=== PATIENT | female | born 1990 | race Caucasian/White ===

== ENCOUNTER 2019-05-25 21:04 | Inpatient (IN) ==
--- NOTE | 2019-05-25 21:25 | EKG Report ---
Test Performed on : 05/25/2019 9:16:01 PM Test Reason : overdose Blood Pressure : / mmHG Vent. Rate : 106 BPM Atrial Rate : 106 BPM P-R Int : 178 ms QRS Dur : 086 ms QT Int : 366 ms P-R-T Axes : 017 067 029 degrees QTc Int : 486 ms Sinus tachycardia. Otherwise normal ECG No previous ECGs available Unconfirmed Result
[2019-05-25 21:34] LABS: BASO# 0.03 X1000 (0.0-0.2); BASO% 0.3 % (0.0-0.8); EOS# 0.17 X1000 (0.0-0.7); EOS% 1.7 % (0.0-10.0); HEMATOCRIT 40.6 % (37.0-47.0); HEMOGLOBIN 14.2 g/dL (12.0-16.0); IMM GRAN# 0.02 X1000 (0.0-0.04); IMM GRAN% 0.2 % (0.0-0.5); LYMPH# 2.19 X1000 (1.2-3.4); LYMPH% 22.3 % (20.5-51.1); MCH 30.8 PG (27-31); MCV 88.1 FL (81-99); MONO# 1.03 X1000 (0.11-0.59); MONO% 10.5 % (1.7-9.3); MPV 10.4 FL (7.4-10.4); PLT 253 X1000 (130-400); RBC 4.61 XMIL (4.2-5.4); RDW 12.2 % (11.5-14.5); WBC 9.84 X1000 (4.8-10.8)
[2019-05-25 21:35] LABS: BILIRUBIN URINE NEGATIVE (NEGATIVE); BLOOD URINE 3+ (NEGATIVE); CLARITY CLEAR (CLEAR); COLOR YELLOW; GLUCOSE URINE NEGATIVE (NEGATIVE); KETONE URINE NEGATIVE (NEGATIVE); LEUKOCYTES URINE NEGATIVE (NEGATIVE); NITRITE URINE NEGATIVE (NEGATIVE); PROTEIN URINE NEGATIVE (NEGATIVE); UROBILINOGEN URINE NORMAL
[2019-05-25 21:47] LABS: URINE BACTERIA NEGATIVE /HFP; URINE CAST NONE SEEN /LPF; URINE CRYSTAL NONE SEEN /HPF; URINE EPITHELIAL CELLS <10 /HPF (<10); URINE RBC <10 /HPF (<10); URINE SOURCE CATH; URINE WBC <10 /HPF (<10); URINE YEAST NONE SEEN /HPF
[2019-05-25 21:50] LABS: UR AMPHETAMINES QUAL NONE DETECTED (NONE DETECT); UR BARBITUATES QUAL NONE DETECTED (NONE DETECT); UR BENZODIAZEPIN QUAL NONE DETECTED (NONE DETECT); UR CANNABINOIDS QUAL NONE DETECTED (NONE DETECT); UR COCAINE QUAL NONE DETECTED (NONE DETECT); UR METHADONE QUAL NONE DETECTED (NONE DETECT); UR METHAMPHETAMINE QUAL NONE DETECTED (NONE DETECT); UR OPIATES QUAL NONE DETECTED (NONE DETECT); UR OXYCODONE QUAL NONE DETECTED (NONE DETECT); UR PCP QUAL NONE DETECTED (NONE DETECT); UR PROPOXYPHENE QUAL NONE DETECTED (NONE DETECT); UR TCA QUAL NONE DETECTED (NONE DETECT)
[2019-05-25 21:52] LABS: AGAP 12; ALBUMIN 4.2 g/dL (3.5-5.0); ALKALINE PHOSPHATASE 73 U/L (32-104); BUN 6 mg/dL (8-22); CALCIUM 8.7 mg/dL (8.8-10.2); CHLORIDE 106 mmol/L (98-107); COSMO 277; CREATININE 0.6 mg/dL (0.5-0.9); ESTIMATED GFR > 60; GLUCOSE 70 mg/dL (70-104); GOT 19 U/L (10-30); GPT 14 U/L (10-36); POTASSIUM 3.5 mmol/L (3.5-5.1); SODIUM 141 mmol/L (136-145); TCO2 23 mmol/L (25-35); TOTAL PROTEIN 6.9 g/dL (6.3-8.3)
--- NOTE | 2019-05-25 22:06 | Diag Imaging Result Doc PS360 ---
EXAM: CHEST-1 VIEW - 05/25/2019 HISTORY: SI TECHNIQUE: Portable chest COMPARISON: None. FINDINGS: Allowing for the AP projection, heart size appears within normal limits. Inspiration is mildly shallow. The lungs appear essentially clear. There is no pleural effusion or pneumothorax identified. IMPRESSION: Mildly shallow inspiration. No other evidence of acute disease. Electronically signed by Chavez Sanford 05/25/2019 10:04 PM
[2019-05-25 22:17] LABS: ACETAMINOPHEN < 1.2 ug/mL (10-30); MAGNESIUM 1.8 mg/dL (1.5-2.7); SALICYLATES < 3.00 mg/dL (3-10)
[2019-05-25] MEDS ORDERED: ATIVAN IV ONE (22:17)
[2019-05-25 22:36] LABS: FREE T4 1.45 ng/dL (0.93-1.70)
[2019-05-25] MEDS ORDERED: STERILE WATER INJ. INJ ONE (22:36)
[2019-05-25] MEDS ORDERED: GEODON IM ONE (22:36)
--- NOTE | 2019-05-25 23:01 | PROVIDER DOCUMENTATION ---
This chart was entered by Joan Wesley Scribe, acting as scribe for Rosamaria Hendrickson MD. HPI-Psychological Disorder - General Chief Complaint: Suicide Attempt Stated Complaint: Overdose Time Seen by Provider: 05/25/19 21:11 Source: patient Allergies/Adverse Reactions: Patient Allergies Allergy/AdvReac Type Severity Reaction Status Date / Time No Known Allergies Allergy Verified 05/25/19 21:12 Home Medications: Home Medication List Medication Instructions Recorded Confirmed Last Taken Type Paroxetine [Paxil] 20 mg PO DAILY 02/08/19 05/26/19 Unknown History Lorazepam 1 mg PO BID 05/26/19 05/26/19 Unknown History Trazodone HCl 50 mg PO HS 05/26/19 05/26/19 Unknown History - History of Present Illness-Psych Nature of Presenting Problem: pt is a 28 yr old female presenting via EMS post suicide attempt, pt reports she took 32 50mg Benadryl and tried to cut her left wrist in attempt to kill herself. pt also admits low abdominal pain and nausea. pt does not say why she wants to harm self. Onset/Duration: reports: this evening (1929) Timing: reports: still present Psychiatric Complaints: reports: depressed, suicidal ideation. denies: homicidal thoughts Substance Use: reports: denies Patient arrived by:: EMS called by spouse/family (brother) - Suicidal Ideation How did the ingestion/other suicidal act come to attention?: pt called brother, brother called 911 Suicide Risk Assessment: depressed, organized plan, frightened friends-family Suicidal Attempt Method: reports: Overdose, Stabbing/Cutting Review of Systems - Adult - REVIEW OF SYSTEMS - ADULT Constitutional: reports: no symptoms reported Eyes: reports: no symptoms reported Ears, Nose, Mouth & Throat: reports: no symptoms reported Cardiovascular: denies: chest pain, palpitations, syncope Respiratory: denies: shortness of breath Gastrointestinal: reports: abdominal pain, nausea. denies: diarrhea, vomiting Genitourinary: reports: no symptoms reported Musculoskeletal: denies: back pain, neck pain Integumentary: reports: no symptoms reported Neurological: denies: dizziness/vertigo, headache/migraines Psychiatric: reports: depression, suicidal thoughts Endocrine: reports: no symptoms reported Hematologic/Lymphatic: reports: no symptoms reported Allergic/Immunologic: reports: no symptoms reported All Other Systems: Reviewed and Negative Past History - Adult - PAST MEDICAL HISTORY-ADULT Review of Records: reports: Old Records Reviewed, Nursing Assessment Review, Medications Reviewed, Social history reviewed & non-contributory. Major Childhood Illnesses: reports: denies history Cardiovascular: reports: denies history Respiratory: reports: denies history Gastrointestinal: reports: denies history Obstetrical/Gynecological: reports: denies history Genitourinary: reports: denies history Musculoskeletal: reports: denies history Neurological: reports: denies history Endocrine/Immune: reports: denies history Other Conditions: reports: denies history - IMMUNIZATION STATUS Childhood Immunizations: See Nurse Assessment Flu Vaccine: See Nurse Assessment - FAMILY HISTORY Family History: reviewed, not pertinent - SOCIAL HISTORY Smoking: cigarettes Provider spent 3-5 mins advising pt. on dangers of tobacco.: Discussed manners to quit use, and f/u contacts for add'l counseling. Substance Use: denies Living Situation: family Physical Exam-Psych Focus - Physical Exam-Psych Initial Vital Signs Reviewed: Yes Appearance: no apparent distress, anxious, impaired insight, slow to respond Neurological: calm, anxious Behavior/Eye Contact/Speech: avoids eye contact Thoughts/Hallucinations: no apparent hallucination, incoherent. negative: auditory hallucinations HENMT: normocephalic/atraumatic, moist mucous membranes, normal ENT inspection Neck: supple Respiratory: lungs clear, normal breath sounds, no respiratory distress, no accessory muscle use Cardiovascular: regular rate, rhythm, no murmur Abdominal Exam: non tender, soft Extremity: normal range of motion, no pedal edema Integumentary: laceration(s) (a superficial 5 cm laceration to the left wrist) Progress - PLAN OF CARE/RESULTS Progress/Plan/Lab Results: Bedside Urine ED: Urine Bedside Start: 05/25/19 21:17 Freq: ORDERED Status: Complete Protocol: Activity Type Activity Date Activity User E-Sign Co-Sign Detail Recorded Client Recorded Date Recorded By Document 05/25/19 21:18 [id number] 05/25/19 21:18 [id number] 05/25/19 21:18 Point of Care [Bedside Point of Care] -Lot # [id number] - Results Negative -Control Line Visible? Yes Orders Category Date Time Status Admit - [facility] Routine [id number] 05/25/19 23:01 Active ED: Urine Bedside ORDERED Care 05/25/19 21:17 Completed Lovell Cath Insertion ORDERED Care 05/25/19 21:20 Completed CHEST-1 VIEW [RAD] Stat Exams 05/25/19 21:20 Completed ACETAMINOPHEN [TDM] Stat Lab 05/25/19 21:13 Completed ALCOHOL BLOOD Stat Lab 05/25/19 21:13 Completed CBC WITH ELECTRONIC DIFF [HEME] Stat Lab 05/25/19 21:13 Completed COMPREHENSIVE METABOLIC PANEL [CHEM] Stat Lab 05/25/19 21:13 Completed FREE T4 Stat Lab 05/25/19 21:13 Completed MAGNESIUM [CHEM] Stat Lab 05/25/19 21:13 Completed SALICYLATES [TDM] Stat Lab 05/25/19 21:13 Completed TSH Stat Lab 05/25/19 21:[address] W/POSS RFLX CULT [URINALYSIS] Stat Lab 05/25/19 19:13 Com[address] DRUG SCREEN PL Stat Lab 05/25/19 19:13 Completed VITAMIN B12 Stat Lab 05/25/19 21:13 Completed Lorazepam [Ativan] Med 05/25/19 22:17 Discontinued 1 mg IV NOW ONE Water, Sterile Inj [Sterile Water Inj] Med 05/25/19 22:36 Discontinued 1.2 ml INJ NOW ONE Ziprasidone [Geodon] Med 05/25/19 22:36 Discontinued 20 mg IM NOW ONE EKG [EKG] Stat Ther 05/25/19 21:16 Draft Transfer/Admit Order [TRANSFER] Routine Transfer 05/25/19 23:02 Completed Result Diagrams: 05/27/19 04:39 05/27/19 04:39 - REASSESSMENT Reassessment #1 Time Reassessed: 22:30 Status: other (PT CONFUSED, TALKING OUT OF HER HEAD, PUKLLED HER LOVELL AND HAS SOME VAGINAL BLEED. ATIVAN 1 MG DID NOT MAKE A DIFFERENCE, GEODON 20 MG IM ORDERED. WILL D/W HOSPITALIST FOR ICU ADMISSION.) - EKG 1 Time of EKG reading by physician:: 21:16 EKG Read and Signed by:: Rosamaria Hendricksno EKG Interpretation (*Must complete 3 of following elements*): Normal Rate: 106 Rhythm: sinus tach [place]: normal QRS: normal MD Interval: normal ST Wave: normal - CONSULTS/PCP/HOSPITALIST Notification #1 *Consult/PCP/Hospitalist*: D/W DR THAYER Time Discussed: 22:54 Consult Disposition: Admit Departure - Departure Date of Disposition Decision: 05/25/19 Time of Disposition Decision: 22:59 DIAGNOSIS: Suicide attempt by drug overdose, Suicide attempt by cutting of wrist Disposition: ADMITTED INPATIENT 09 Certified Medical Emergency: Emergent Condition: Stable - Critical Care Note This patient required my direct & personal management of CC.: No Attestation - Physician/ ROXANNE Attestation Patient care was provided by Advanced Practice Provider:: No The physician spent face to face time with patient:: Yes Advanced Practice Provider documentation review:: Supervising physician onsite and consulted in the evaluation and care of this patient. The physician did have a face to face encounter with the patient. This chart was documented by the indicated scribe, (Joan Wesley, [employer]) and accurately reflects the services I performed and decisions made by me, Rosamaria Hendrickson MD, as attested by the provider's signature.
[2019-05-26 02:10] LABS: ACETAMINOPHEN < 1.2 ug/mL (10-30); SALICYLATES < 3.00 mg/dL (3-10)
[2019-05-26] MEDS ORDERED: ZOFRAN ODT PO ONE (05:59)
[2019-05-26] MEDS ORDERED: ZOFRAN IV PRN (08:52)
[2019-05-26] MEDS: PRILOSEC PO SCH (11:22)
[2019-05-26] MEDS: PAXIL PO SCH (11:23)
[2019-05-26] MEDS: NICODERM PATCH TD SCH (11:23)
[2019-05-26] MEDS: NS 1,000 ML IV SCH ×2 (11:23→19:18)
--- NOTE | 2019-05-26 13:45 | HISTORY AND PHYSICAL ---
CHIEF COMPLAINT: Suicide attempt and overdose. HISTORY OF PRESENT ILLNESS: This is a 28-year-old female. She presented to the ER with a past medical history of anxiety and depression. She states that this p.m. she decided to take 30 tablets of [id number] Benadryl and decided to cut her left wrist area. The patient states she has been having a lot of stress for the past few months, and she just decided that she did not want to go on any more. The patient is lying in bed. She is awake, alert and oriented. She denies any suicidal ideations or intentions at this time. The patient does state that she has a history of anxiety and depression and is on Paxil at home. The patient is a little tearful at this time when asking her about her presenting problem. There is noted superficial crosscut to the inside of the left forearm area. The wound does not appear to be draining any drainage and is scabbed over at this time. The patient denies any cough or congestion. She denies any fevers or chills. She denies any abdominal pain or chest pain, any dysuria or hematuria. She denies any constipation or hematemesis or diarrhea. PAST MEDICAL HISTORY: Anxiety and depression. PAST SURGICAL HISTORY: Disc fusion to her back 11 years ago. She has had arthroscopy to her bilateral knees. She has had right foot surgery from fractures. FAMILY HISTORY: Mother is positive for anxiety. Sister is positive for depression and anxiety. SOCIAL HISTORY: The patient lives with her and her 4 children. She is a housewife. She smokes 1 pack of cigarettes per day. She denies any alcohol or drug abuse. ALLERGIES: No known drug allergies. MEDICATIONS: Paxil 20 mg p.o. daily. The patient does state she takes Ativan for her anxiety, but this is not on her home medication list. LABORATORY AND DIAGNOSTICS: White blood cell count 9.84, red blood cell count 4.61, hemoglobin 14.2, hematocrit 40.6, platelet count 253,000. Sodium 141, potassium 3.5, carbon dioxide 23, BUN 6, creatinine 0.6, GFR greater than 60, glucose 70, calcium 8.7, total bilirubin 0.20, AST 19, ALT 14, alkaline phosphate 73, creatinine kinase 91. B12 197. TSH 1.88. Free T4 1.45. Urinalysis is negative. Salicylates is less than 3. Acetaminophen is less than 1.2. Urine drug screen negative. Plasma alcohol level negative. Chest x-ray shows no evidence of acute disease. EKG show sinus tachycardia. REVIEW OF SYSTEMS: A 10-point review of systems has been obtained, and all are negative except for what is stated above in HPI. PHYSICAL EXAMINATION: VITAL SIGNS: Temperature 98.0, pulse rate 78, respiratory rate 20, blood pressure 140/72, O2 sat 100% on room air, weight 140 pounds, height 5 feet 9 inches. GENERAL: This is a 28-year-old female. She is lying in the bed. She is in no acute distress. She is well nourished and well developed. She is somewhat tearful at this present time. HEENT: Atraumatic, normocephalic. Pupils equal, round, reactive to light. Extraocular movements intact. Sclerae anicteric. Mucous membranes are moist. NECK: Supple. No lymphadenopathy. Trachea is midline. No JVD, no thyromegaly, no bruits. CARDIOVASCULAR: Regular rate and rhythm. No murmurs, gallops or rubs appreciated. RESPIRATORY: Lung sounds are clear with equal chest excursions. Respirations are nonlabored. There is no accessory muscle usage. GI: Abdomen is soft, nontender and nondistended. Bowel sounds are present x 4. NEUROLOGIC: Cranial nerves II through XII are intact. The patient is awake, alert and oriented. She is able to follow all commands. MUSCULOSKELETAL: Full distal strength noted. No abnormalities. No deformities. EXTREMITIES: No clubbing, no cyanosis, no edema. DP and PT pulses are present and palpable. SKIN: Warm, dry and intact. No rashes, no bruises, no diaphoresis. ASSESSMENT AND PLAN: 1. Suicide attempt and overdose. We have placed this patient in the ICU. She is on suicide precautions at this time. We have put her on IV fluid hydration with normal saline at 100 mL an hour. We will start her on a regular diet. We are going to repeat labs in the morning. I have consulted Shae Burger. We will do vital signs routinely and restart her on her home antidepressant. We will provide her with DVT prophylaxis and GI prophylaxis. She can also have Zofran 4 mg q.4 hours for nausea and Tylenol 650 mg q.6 hours p.r.n. pain or fever. 2. Depression and anxiety. We have started this patient back on her home Paxil. 3. GI prophylaxis. We have started the patient on Prilosec 40 mg p.o. daily. 4. DVT prophylaxis. We have started the patient on SCDs. 5. Tobacco dependence. We have placed the patient on a nicotine patch, and we have provided smoking cessation. All other further recommendations pending hospital course and lab data. Dictated by KAYLIE Rolon for Robbie Weaver MD cc: Robbie Weaver MD MTDD
[2019-05-26] MEDS ORDERED: DESYREL PO PRN (15:40)
[2019-05-26] MEDS ORDERED: ATIVAN PO ONE (15:40)
[2019-05-26] MEDS: TYLENOL PO PRN ×2 (15:54→22:00)
--- NOTE | 2019-05-26 18:59 | HISTORY AND PHYSICAL ---
ADDENDUM REPORT: Patient seen and examined by myself. Full note dictated and discussed with nurse practitioner. Patient is a 28-year-old female who presented to the hospital after having taken roughly 32 Benadryl 50 mg tablets and apparently had cut her left wrist in an attempt to kill herself. We will admit her to the hospital. We will continue to follow for any type of withdrawal and once stable will consult Shae Burger for further assistance. cc: Robbie Weaver MD
[2019-05-26] MEDS: ATIVAN PO SCH (22:38)
[2019-05-27] MEDS: NS 1,000 ML IV SCH (05:20)
[2019-05-27 05:47] LABS: BASO# 0.01 X1000 (0.0-0.2); BASO% 0.1 % (0.0-0.8); EOS# 0.21 X1000 (0.0-0.7); EOS% 3.1 % (0.0-10.0); HEMATOCRIT 38.6 % (37.0-47.0); HEMOGLOBIN 12.9 g/dL (12.0-16.0); IMM GRAN# 0.01 X1000 (0.0-0.04); IMM GRAN% 0.1 % (0.0-0.5); LYMPH# 2.01 X1000 (1.2-3.4); LYMPH% 30.1 % (20.5-51.1); MCHC 33.4 g/dL (33-37); MCV 89.8 FL (81-99); MONO# 0.68 X1000 (0.11-0.59); MONO% 10.2 % (1.7-9.3); MPV 10.2 FL (7.4-10.4); NEUT# 3.75 X1000 (1.4-6.5); NEUT% 56.4 % (42.2-75.2); PLT 206 X1000 (130-400); RDW 12.1 % (11.5-14.5); WBC 6.67 X1000 (4.8-10.8)
[2019-05-27 06:09] LABS: AGAP 8; BUN 8 mg/dL (8-22); CALCIUM 7.7 mg/dL (8.8-10.2); CHLORIDE 108 mmol/L (98-107); COSMO 278; CREATININE 0.5 mg/dL (0.5-0.9); ESTIMATED GFR > 60; GLUCOSE 99 mg/dL (70-104); POTASSIUM 3.9 mmol/L (3.5-5.1); SODIUM 140 mmol/L (136-145); TCO2 25 mmol/L (25-35)
[2019-05-27] MEDS: PRILOSEC PO SCH (06:21)
--- NOTE | 2019-05-27 08:37 | EKG Report ---
Test Performed on : 05/27/2019 08:10:50 AM Test Reason : Q-T INTERVAL Blood Pressure : / mmHG Vent. Rate : 070 BPM Atrial Rate : 070 BPM P-R Int : 156 ms QRS Dur : 086 ms QT Int : 430 ms P-R-T Axes : 022 080 065 degrees QTc Int : 464 ms Normal sinus rhythm. Normal ECG When compared with ECG of 25-MAY-2019 21:16, (Unconfirmed) Vent. rate has decreased BY 36 BPM Non-specific change in ST segment in Lateral leads Confirmed by Jimmie Molina MD ([id number]) on 05/28/2019 11:26:26 AM
[2019-05-27] MEDS: NICODERM PATCH TD SCH (10:18)
[2019-05-27] MEDS: ATIVAN PO SCH (10:18)
[2019-05-27] MEDS: PAXIL PO SCH (10:18)
[2019-05-27] MEDS ORDERED: ATIVAN PO ONE (17:07)
[2019-05-27 17:32] VITALS: BP 127/78
--- NOTE | 2019-05-27 22:08 | DISCHARGE SUMMARY ---
ADMISSION DATE: 05/25/2019 DISCHARGE DATE: 05/27/2019 DISCHARGE DIAGNOSIS: 1. Intentional suicide attempt. 2. Depression. 3. Chronic anxiety. 4. History of disk fusion approximately 11 years ago. 5. Bilateral knee pain. CONSULTATIONS: Shae Burger. PROCEDURES: None. BRIEF HOSPITAL COURSE: The patient is a 28-year-old female who apparently had an intentional suicide attempt at home taking multiple doses of Benadryl as well as attempting to any cut her wrist. She was admitted the hospital. Thankfully she had an uneventful hospital course, was treated in the usual fashion, placed on telemetry in the ICU, after she was ruled out for any other medical complications Shae Burger was consulted and agreed that she need further inpatient treatment. DISPOSITION: Patient be transferred further inpatient treatment. Further discharge planning and instructions per them. Greater than 30 minutes was spent in total care. cc: Robbie Weaver MD MTDD
== END 2019-05-27 19:35 | DRG 918 ==
LOC: P.ED 21:04 → P.ICU 23:21 → P.EDIPHOLD 23:51 → P.ICU 05-26 07:21
PROVIDERS: ATTEND Family Medicine